=== PATIENT | male | born 1995 | race American Indian/Alaskan Native ===

== ENCOUNTER 2018-08-02 18:56 | Emergency (ER) | payer OTHER ==
[2018-08-02] MEDS ORDERED: TYLENOL ONE (19:25)
[2018-08-02] MEDS ORDERED: TYLENOL PO ONE (19:32)
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
--- NOTE | 2018-08-02 21:25 | XRay Report ---
FINAL REPORT PROCEDURE: XR KNEE 3V RT TECHNIQUE: RIGHT knee radiographs, AP, lateral and oblique views. CPT 11144 HISTORY: right knee pain and abrasion COMPARISON: No prior studies are available for comparison. FINDINGS: Fracture (s) and/or Dislocation(s): None . Alignment: Normal . Joint space(s): Mild degree joint effusion is noted. Soft tissues: Normal . Bone mineralization: Normal . Foreign bodies: None . IMPRESSION: No acute fracture Mild degree joint effusion.
--- NOTE | 2018-08-02 21:27 | XRay Report ---
FINAL REPORT PROCEDURE: XR SPINE LUMBOSACRAL 2-3V TECHNIQUE: Lumbar spine radiographs, frontal and lateral views. CPT 49618 HISTORY: low back pain COMPARISON: No prior studies are available for comparison. FINDINGS: Alignment: Subtle dextroscoliosis is noted.. Vertebral body heights/Disk spaces: Normal . Fracture(s): None . Facets: Normal . Bone mineralization: Normal . IMPRESSION: No acute abnormality
[2018-08-03] MEDS ORDERED: TRIPLE ANTIBIOTIC TP STA (00:02)
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
[2018-08-03 00:20] VITALS: BP 123/80
== END 2018-08-03 00:41 | disposition home or self-care (01) ==
LOC: ED 18:56
DX: S80.01XA Contusion of right knee, initial encounter (principal); Z91.018 Allergy to other foods; V49.49XA Driver injured in collision with other motor vehicles in traffic accident, initial encounter; Y93.89 Activity, other specified; Y92.410 Unspecified street and highway as the place of occurrence of the external cause; Y99.8 Other external cause status
CPT/HCPCS: 72100; 99283; A6250